=== PATIENT | female | born 1975 | race Caucasian/White ===

== ENCOUNTER 2017-01-15 05:37 | Emergency (ER) | payer BC ==
[~2017-01-15] VITALS: Ht 175.3 cm; Wt 107.4 kg
[~2017-01-15 05:37] MED LIST: BACTRIM DS1 TAB PO; BETAMETH DIP0.05 % EX; CIPRO XR500 MG PO; CIPROFLOXACN500 MG PO; DICLOFENAC25 MG PO; FLEXERIL10 MG PO; FLOMAX0.4 M1 PO; HYDROCHLOROT12.5 MG PO; HYDROXYZ HCL25 MG OR; LORTAB 7.57.5 MG PO; METFORMIN1000 MG PO; METFORMIN500 MG PO; NAPROSYN500 MG PO; NOVOLO1 SC; PYRIDIUM200 MG PO; TORADOL PO; ZANTAC 150 PO; [UNRECOGNIZED DRUG - OTHER]
[2017-01-15 06:57] LABS: INFLUENZA A NONE DETECTED (NONE DETECT); INFLUENZA B NONE DETECTED (NONE DETECT)
[2017-01-15] MEDS ORDERED: CODEINE/GUAIFEN1 SOL PO ×2 (07:11→07:22)
[2017-01-15] MEDS ORDERED: AUGMENTIN875TAB PO (07:11)
[2017-01-15] MEDS ORDERED: Levaquin PO (07:20)
[2017-01-15 07:32] LABS: URINE BILIRUBIN - DIPSTICK NEGATIVE (NEGATIVE); URINE BLOOD DIPSTICK NEGATIVE (NEGATIVE); URINE CLARITY CLEAR; URINE COLOR YELLOW; URINE GLUCOSE - DIPSTICK 500 mg/dL (NEGATIVE); URINE KETONE >=80 mg/dL (NEGATIVE); URINE LEUK ESTERASE NEGATIVE (NEGATIVE); URINE NITRITE - DIPSTICK NEGATIVE (Negative); URINE PH 5.5 (4.5-8.0); URINE PROTEIN - DIPSTICK NEGATIVE (NEG-TRACE); URINE SPECIFIC GRAVITY 1.015; URINE UROBILINOGEN - DIPSTICK 0.2 E.U./dL (0.2)
[2017-01-15 07:47] VITALS: BP 146/84
== END 2017-01-15 07:52 | disposition home or self-care (01) | DRG 153 ==
LOC: ED 05:37
PROVIDERS: Emergency Medicine
DX: J06.9 Acute upper respiratory infection, unspecified (principal); J40 Bronchitis, not specified as acute or chronic; R50.9 Fever, unspecified; R05 Cough; M79.1 Myalgia

== ENCOUNTER 2017-11-12 17:17 | Emergency (ER) | payer BC ==
[~2017-11-12] VITALS: Ht 175.3 cm; Wt 106.0 kg
[~2017-11-12 17:17] MED LIST changes: +AUGMENTIN875TAB PO; +CODEINE/GUAIFEN1 SOL PO; +Levaquin PO
[2017-11-12] MEDS ORDERED: PERCOCET 5/325M1 TAB PO (17:51)
[2017-11-12] MEDS ORDERED: EC-NAPROSYN500 MG PO (17:51)
[2017-11-12] MEDS ORDERED: FLEXERIL PO (17:51)
[2017-11-12 18:49] VITALS: BP 130/94
== END 2017-11-12 18:49 | disposition home or self-care (01) | DRG 563 ==
LOC: ED 17:17
DX: S42.295A Other nondisplaced fracture of upper end of left humerus, initial encounter for closed fracture (principal); S13.4XXA Sprain of ligaments of cervical spine, initial encounter; E11.9 Type 2 diabetes mellitus without complications; W17.89XA Other fall from one level to another, initial encounter

== ENCOUNTER → 2018-10-10 | Outpatient (REF) ==
[~2018-10-10] MED LIST changes: +EC-NAPROSYN500 MG PO; +FLEXERIL PO; +PERCOCET 5/325M1 TAB PO
== END | disposition home or self-care (01) | DRG 74 ==
LOC: LAB 08:40
PROVIDERS: ATTEND Internal Medicine Endocrinology, Diabetes & Metabolism
DX: E11.42 Type 2 diabetes mellitus with diabetic polyneuropathy (principal); E78.2 Mixed hyperlipidemia